=== PATIENT | female | born 1955 | race Caucasian/White ===

== ENCOUNTER → 2016-08-28 | Outpatient (CLI) | payer OTHER ==
--- NOTE | 2016-08-28 15:14 | Diagnostic Imaging Report ---
INDICATION: Right shoulder pain. AP, oblique, and lateral views of the right shoulder are obtained. FINDINGS: No fracture or acute bony abnormality is seen. Glenohumeral joint appears unremarkable. There is some inferior acromial spurring. IMPRESSION: No acute fracture or dislocation. Some inferior acromial spurring is noted. Dictated by: Dictated on workstation # [id number]
== END ==
LOC: RAD 13:56
PROVIDERS: ATTEND Nurse Practitioner Family
DX: M25.511 Pain in right shoulder (principal)
CPT/HCPCS: 73030